=== PATIENT | female | born 1950 ===

== ENCOUNTER 2018-08-06 00:43 | Emergency (ER) | payer MEDICARE, MEDICAID ==
[2018-08-06 00:43] VITALS: BMI 30.9
[2018-08-06] MEDS ORDERED: DiphenhydrAMINE 50 mg/ml Inj ONE (01:06)
[2018-08-06 01:07] VITALS: O2SAT 98
[2018-08-06] MEDS ORDERED: DiphenhydrAMINE 50 mg/ml Inj IVP STA (01:29)
--- NOTE | 2018-08-06 01:44 | ED PDOC ---
HPI: Allergic Reaction Time Seen by Provider: 08/06/18 01:03 Chief Complaint (Nursing): Allergic Reaction Chief Complaint (Provider): Allergic Reaction History Per: Patient History/Exam Limitations: no limitations Onset/Duration Of Symptoms: Hrs (2hrs ago [employer] ) Current Symptoms Are (Timing): Still Present Possible Cause: Food Associated Symptoms: Swelling Additional Complaint(s): 68 year old female presents to the ED for an evaluation of allergic reaction onset 2 hours prior to arrival after eating roasted honey peanut butter. One hour afterwards, patient felt swelling to her left lip with throat tightness. Patient is compliant with her medication. Otherwise, patient did not take any medication for the allergic reaction prior to arrival. Also denies allergic reaction in the past, fever, vomiting or diarrhea. PMD: Denys Jacome Past Medical History Reviewed: Historical Data, Nursing Documentation, Vital Signs Vital Signs: Last Vital Signs Temp 98.2 F 08/06/18 01:02 Pulse 74 08/06/18 01:02 Resp 18 08/06/18 01:02 BP 139/76 08/06/18 01:02 Pulse Ox 98 08/06/18 01:02 Primary Care Provider: Denys Jacome - Medical History PMH: Anxiety, Hypercholesterolemia, Hypothyroidism, Kidney Stones, Mitral Valve Prolapse Denies: HIV - Surgical History Surgical History: Cholecystectomy Other surgeries: thyroid, neck, carpometacarpal and shoulder - Family History Family History: States: Unknown Family Hx - Social History Current smoker - smoking cessation education provided: No Alcohol: None Drugs: Denies - Immunization History Hx Tetanus Toxoid Vaccination: No Hx Influenza Vaccination: No - Home Medications Home Medications: Ambulatory Orders Medication Instructions Recorded Synthroid 88 mcg PO DAILY 05/21/15 Xanax 0.5 mg PO BID 05/21/15 Ciprofloxacin HCl [Cipro] 500 mg PO BID #14 tablet 12/28/15 Tamsulosin [Flomax] 0.4 mg PO DAILY #0 cap 12/28/15 DiphenhydrAMINE [Benadryl] 25 mg PO Q6H PRN #10 cap 08/06/18 Epinephrine HCl [Epipen 0.3 mg MR Q5MIN PRN #1 bottle 08/06/18 Auto-Injector] Famotidine [Pepcid] 20 mg PO BID PRN #10 tab 08/06/18 predniSONE [Prednisone] 40 mg PO DAILY #8 tab 08/06/18 - Allergies Allergies/Adverse Reactions: Allergies Allergy/AdvReac Type Severity Reaction Status Date / Time acetaminophen Allergy RASH Verified 08/06/18 01:07 [From Darvocet-N] codeine phosphate Allergy RASH Verified 08/06/18 01:07 [From Tylenol-Codeine #3] ibuprofen Allergy RASH Verified 08/06/18 01:07 indomethacin [From Indocin] Allergy RASH Verified 08/06/18 01:07 indomethacin sodium Allergy RASH Verified 08/06/18 01:07 [From Indocin] oxycodone HCl [From Percocet] Allergy RASH Verified 08/06/18 01:07 propoxyphene napsylate Allergy RASH Verified 08/06/18 01:07 [From Darvocet-N] tramadol Allergy RASH Verified 08/06/18 01:07 Review of Systems ROS Statement: Except As Marked, All Systems Reviewed And Found Negative Constitutional: Negative for: Fever Gastrointestinal: Negative for: Vomiting, Diarrhea Skin: Positive for: Other (left lip swelling ). Negative for: Rash Physical Exam - Reviewed Nursing Documentation Reviewed: Yes Vital Signs Reviewed: Yes - Physical Exam Appears: Positive for: Well, Non-toxic, No Acute Distress Head Exam: Positive for: ATRAUMATIC, NORMAL INSPECTION, NORMOCEPHALIC Skin: Positive for: Normal Color, Warm, Dry. Negative for: Rash Eye Exam: Positive for: EOMI, Normal appearance, PERRL ENT: Positive for: Pharynx Is (clear ), Other (left lip swollen , no angioedema, oropharynx clear). Negative for: Tonsillar Swelling Neck: Positive for: Normal, Painless ROM, Supple. Negative for: Decreased ROM Cardiovascular/Chest: Positive for: Regular Rate, Rhythm. Negative for: Murmur Respiratory: Positive for: Normal Breath Sounds. Negative for: Decreased Breath Sounds, Wheezing, Respiratory Distress Pulses-Dorsalis Pedis (L): 2+ Pulses-Dorsalis Pedis (R): 2+ Gastrointestinal/Abdominal: Positive for: Normal Exam, Soft. Negative for: Tenderness Back: Positive for: Normal Inspection Extremity: Positive for: Normal ROM. Negative for: Tenderness, Pedal Edema, Deformity Neurological/Psych: Positive for: Awake, Alert, Normal Tone, Oriented (x3) - ECG O2 Sat by Pulse Oximetry: 98 (RA) Pulse Ox Interpretation: Normal Disposition - Clinical Impression Clinical Impression: Allergic reaction - Patient ED Disposition Is Patient to be Admitted: No Counseled Patient/Family Regarding: Studies Performed, Diagnosis, Need For Followup - Disposition Referrals: Denys Jacome [Primary Care Provider] - Disposition: Routine/Home Disposition Time: 03:30 Condition: IMPROVED Additional Instructions: follow up with your primary doctor in 1-2 days return to the ED with any worsening or concerning symptoms Prescriptions: Epinephrine HCl [Epipen Auto-Injector] 0.3 mg MR Q5MIN PRN #1 bottle PRN Reason: Anaphylaxis DiphenhydrAMINE [Benadryl] 25 mg PO Q6H PRN #10 cap PRN Reason: Allergy Symptoms Famotidine [Pepcid] 20 mg PO BID PRN #10 tab PRN Reason: Heartburn predniSONE [Prednisone] 40 mg PO DAILY #8 tab Instructions: Food Allergy Forms: [facility] (E[place]ian) Medical Decision Making Medical Decision Making: Time: 01:28 Impression: allergic reaction to food with mild lip swelling Plan: --Bendryl 50mg --Pepcid 20mg --Solumedrol 125mg 03:40 Patient feels better, lip less swollen, and advised to follow up with PMD in 1-2 days and take medication as prescribed also prescribed epipen as needed for anaphylaxis instructions given to patient Scribe Attestation: Documented by Star Cottrell, acting as a scribe for Beatrice Palacios MD. Provider Scribe Attestation: All medical record entries made by the Scribe were at my direction and personally dictated by me. I have reviewed the chart and agree that the record accurately reflects my personal performance of the history, physical exam, medical decision making, and the department course for this patient. I have also personally directed, reviewed, and agree with the discharge instructions and disposition.
[2018-08-06 03:37] VITALS: BP 105/50; PULSE 69; RESP 16; TEMP 98
== END 2018-08-06 03:50 | disposition home or self-care (01) ==
LOC: H.ER 00:43
DX: T78.1XXA Other adverse food reactions, not elsewhere classified, initial encounter (principal); R22.0 Localized swelling, mass and lump, head; E03.9 Hypothyroidism, unspecified; E78.00 Pure hypercholesterolemia, unspecified; Z87.442 Personal history of urinary calculi; Z88.5 Allergy status to narcotic agent; Z88.6 Allergy status to analgesic agent; Z88.8 Allergy status to other drugs, medicaments and biological substances
CPT/HCPCS: 96374; 96375; 99283; J1200; J2930